=== PATIENT | male | born 1940 ===

== ENCOUNTER 2023-09-19 11:01 | Day surgery (SDC) | payer MEDICARE ==
[~2023-09-19 11:01] MED LIST: ALPRAZolam 0.25 MG TAB PO PRN; ALPRAZolam 0.5 MG TAB PO PRN; NITROGLYCERIN SL TABS 0.4 MG TAB SUBLINGUAL PRN
[2023-09-19] MEDS: IV FLUID CONTINUATION 1,000 ML IV ONE (12:16)
[2023-09-19 12:19] VITALS: RESP 16
[2023-09-19] MEDS: ASPIRIN 325 MG TAB PO STA (12:22)
[2023-09-19] MEDS: SODIUM CHLORIDE 0.9% 1,000 ML in EMPTY BAG 1 BAG IV SCH (12:22)
[2023-09-19] MEDS: ATORVASTATIN 80 MG TAB PO STA (12:23)
[2023-09-19 12:32] LABS: Glucose,Whole Blood 101 mg/dL (70-110)
[2023-09-19] MEDS ORDERED: fentaNYL (PF) 50 MCG/ML 2 ML AMP ONE (13:21)
[2023-09-19] MEDS ORDERED: LIDOCAINE 1% INJ 10MG/ML (20 ML MDV) ONE (13:21)
[2023-09-19] MEDS ORDERED: HEPARIN SODIUM 1,000 UN/ML (10ML VL) ONE (13:21)
[2023-09-19] MEDS ORDERED: VERAPAMIL 2.5 MG/ML 2 ML AMP ONE (13:21)
[2023-09-19] MEDS: LIDOCAINE 1% INJ 10MG/ML (20 ML MDV) SQ ONE ×2 (13:39→13:40)
[2023-09-19] MEDS: VERAPAMIL SYRINGE (5 MG/10 ML) INTRAARTER ONE ×2 (13:40→13:45)
[2023-09-19] MEDS: fentaNYL (PF) 50 MCG/ML 2 ML AMP IVP ONE (13:43)
[2023-09-19] MEDS: MIDAZOLAM 2 MG/2 ML VIAL IVP ONE (13:43)
[2023-09-19] MEDS: HEPARIN SODIUM,PORCINE 10,000 UNIT in SODIUM CHLORIDE 0.9% 1,000 ML IRRIGATION PRN (13:47)
[2023-09-19] MEDS: HEPARIN SODIUM,PORCINE (1 ML) 2,500 UNIT in SODIUM CHLORIDE 0.9% 250 ML IRRIGATION PRN (13:47)
[2023-09-19] MEDS: HEPARIN SODIUM 1,000 UN/ML (10ML VL) IVP ONE (13:54)
[2023-09-19] MEDS: IOPAMIDOL-370 100ML BTL INJ ONE ×2 (14:20→15:05)
--- NOTE | 2023-09-19 15:11 | P.CARDCATH ---
Description of Procedure: PROCEDURES PERFORMED: iFR (RFR), CMR LAD INDICATION: VT, CAD CONSENT:I have discussed the risks, benefits and alternative therapies for the above-mentioned procedure and for both sedation/analgesia as well as necessary blood product administration, if indicated, as they pertain to this patient. The patient has indicated understanding and acceptance of the risks and procedures discussed. PROCEDURE: After the risks, benefits and alternatives of the above mentioned procedure explained in detail with the patient, informed consent was obtained. Patient was taken to the catheterization lab and prepped and draped in usual fashion. A 6-[place] sheath had been placed in the right radial artery however due to tortuosity a 6Fr sheath was ultimately placed in the right radial artery, see separate report. A 6Fr CLS 4.0 guide was used to engage the left main. Heparin was given for ACT > 250. A 0.014 pressure wire was advanced into the left main and normalized. The pressure wire was advanced into the mid LAD and RFR was performed and was normal at 0.96. Next CMR was achieved with hyperemia with Adenosine infusion. The guide was removed. The right radial sheath was removed and a TR band was placed with hemostasis achieved. A 6Fr Angioseal was placed in the right femoral artery and hemostasis was achieved. The patient tolerated the procedure well. Patient was transported back to the post catheterization holding area in stable condition. Conscious Sedation: Patient was monitored under the direct supervision of myself for conscious sedation using Versed and fentanyl for a total duration of 20 minutes HEMODYNAMICS: Ao: 142/78 SELECTIVE CORONARY ARTERIOGRAPHY: LEFT MAIN: The left main is a large caliber vessel which bifurcates into the LAD and circumflex. There is no significant stenosis. LEFT ANTERIOR DESCENDING CORONARY ARTERY: LAD is a large caliber vessel which wraps around to the apex. There is 40-50% instent stenosis of the proximal LAD stent. LEFT CIRCUMFLEX CORONARY ARTERY: Left circumflex is a moderate caliber vessel with 40% proximal circumflex stenosis. RIGHT CORONARY ARTERY: The right coronary artery was not imaged, see separate report. FINAL IMPRESSION: 1. CAD as described above including 40-50% proximal LAD in stent stenosis. 2. Normal RFR/FFR of LAD 3. Abnormal CFR, IMR LAD consistent with microvascular dysfunction PLAN: 1. Aggressive risk factor modification per most recent ACC/AHA guidelines. 2. Follow-up in the office in 1-2 weeks.
[2023-09-19 16:35] VITALS: TEMP 97.3
[2023-09-19 18:28] VITALS: PULSE 60
[2023-09-19 18:30] VITALS: BP 127/79
--- NOTE | 2023-09-20 23:52 | P.CARDCATH ---
Date of Procedure: 09/19/23 Description of Procedure: DIAGNOSTIC CORONARY ANGIOGRAPHY and LEFT HEART CATH REPORT PROCEDURES PERFORMED: Left heart catheterization Selective coronary angiography Moderate conscious sedation 50 mins Right radial access Ultrasound assisted right femoral access INDICATION: Ventricular tachycardia, coronary artery disease CONSENT: I have explained the procedural steps of above-mentioned procedures in layman's terms to the patient. I discussed the risks (including but not limited to stroke, emergent vascular or cardiac surgery or ), benefits and alternative therapies for the above-mentioned procedure. I discussed the risks of sedation/analgesia and blood product administration (if indicated). The patient has indicated understanding and acceptance of these risks. Conscious Sedation: Patient's ECG, heart rate, blood pressure, pulse oximetry were monitored throughout the duration of procedure under my direct supervision. [2] mg Versed and [50] mcg Fentanyl were used for induction of moderate conscious sedation. Total duration of moderate concious sedation 50 minutes. PROCEDURE: After explaining the risks, benefits and alternatives of the above mentioned procedures in detail to the patient, informed consent was obtained. Patient was taken to the catheterization lab, prepped and draped in usual sterile fashion using universal precuations. Ultrasound was used to identify the radial artery. 1% lidocaine was infiltrated over the right radial artery. A 6-[place] sheath was placed and secured in the right radial artery using modified Seldinger technique. The sheath was flushed and 5 mg verapamil was administered intra-arterially. J tipped wire was advanced under fluoroscopic guidance. Once the wire tip reached aortic root 6000 units of IV heparin was given. 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 Decision was made to terminate the right radial approach and proceed with right femoral access. Ultrasound was utilized to identify the right common femoral artery. The bifurcation site was identified and under ultrasound guidance and using modified Seldinger technique using a micropuncture needle right common femoral access was obtained. Micropuncture needle was exchanged for a micro sheath over the wire and then the micro sheath was exchanged for a 6 [place] slender glide sheath over the wire. The positioning of the sheath was confirmed with the right common femoral angiogram. Once the appropriate placement of the sheath was confirmed, the J- wire was advanced with the sheath. Over the wire a 5 [place] JL4 diagnostic catheter was advanced. Under Fluoroscopy guidance the wire and the catheter was advanced. The wire was removed the catheter was placed. The catheter was manipulated to selectively engage the left coronary ostium. Left coronary angiogram was performed in different angiographic projections. This catheter was exchanged for a JL 5 diagnostic catheter 5 [place] over the wire. The wire was removed and the agusto ter was flushed and was manipulated to selectively engage the right coronary ostium. Right coronary angiogram was performed. The catheter was disengaged from the right coronary artery and with the help of the wire it was prolapsed across the aortic valve to enter the left ventricle. Left ventricular pressures were obtained. Pullback was performed. After careful review of images it was decided to proceed with IFR assessment of the proximal LAD. Case was discussed with Dr. Reilly. The wire was left in place, the coronary diagnostic catheter was removed. The sheath was flushed. The patient tolerated the procedure well with no immediate IntraOp or postop complications. Technical details Contrast used 120 mL Isovue Blood loss 15 mL Complications none HEMODYNAMICS: Aortic Pressure: [110/73] mmHg. LV pressure: [127/4] mmHg. LVEDP [15] mmHg. There was no significant gradient across the aortic valve. SELECTIVE CORONARY ARTERIOGRAPHY: LEFT MAIN: The left main is short and large caliber vessel. It bifurcates into the LAD and circumflex. Left main appears angiographically normal. LEFT ANTERIOR DESCENDING CORONARY ARTERY: LAD is a large caliber vessel which wraps around to the apex. Proximal LAD has a prior stent which appears to have a 50 to 60% in-stent stenosis. Mid and distal LAD appears angiographically normal. It gives rise to diagonal branch which appears angiographically normal with mild luminal irregularities. LAD has slow flow LEFT CIRCUMFLEX CORONARY ARTERY: It is nondominant vessel. Left circumflex is a moderate caliber vessel. Proximal LCx has 30 to 40% luminal narrowing. It gives rise to a OM branch which has mild luminal irregularities and is otherwise patent. RIGHT CORONARY ARTERY: Dominant vessel. RCA has mild luminal irregularities with 10 to 20% narrowing but no significant obstructive disease. It gives rise to PDA and PL branch branches which appear angiographically patent. IMPRESSION: 50 to 60% proximal LAD in-stent stenosis with REILLY II flow Mild nonobstrucitive disease in LCx Mild nonobstructive disease in RCA PLAN: Plan for IFR assessment of LAD Further recommendations to follow Performing Physician Jin Smith MD, FACC, RPVI Thank you for allowing [facility] to participate in this patient's care. Feel free to reach out in case of any followup questions.
== END 2023-09-19 21:10 | disposition home or self-care (01) ==
LOC: CATHCVL 11:01 → 6NMEDSUR 15:00 → CATHCVL 21:10
PROVIDERS: ATTEND Student in an Organized Health Care Education/Training Program
DX: I25.10 Atherosclerotic heart disease of native coronary artery without angina pectoris (principal); I48.11 Longstanding persistent atrial fibrillation; I47.20 Ventricular tachycardia, unspecified; E11.9 Type 2 diabetes mellitus without complications; I44.7 Left bundle-branch block, unspecified; I10 Essential (primary) hypertension; Z79.01 Long term (current) use of anticoagulants; Z79.82 Long term (current) use of aspirin; Z79.84 Long term (current) use of oral hypoglycemic drugs; Z79.899 Other long term (current) drug therapy
CPT/HCPCS: 93571; 93458; 99152; 99153 ×2; C1760; C1887; C1769 ×4; C1894 ×2; J2250; J1644 ×3; J2001; J3010; Q9967